=== PATIENT | male | born 1985 | race Caucasian/White ===

== ENCOUNTER 2016-09-29 14:18 | Emergency (ER) | payer MEDICAID ==
[~2016-09-29] VITALS: Ht 182.9 cm; Wt 74.0 kg
[~2016-09-29 14:18] MED LIST: CHOL20003 PO; FOLI-17 PO; LACO200T PO; LEVE500T8 PO; LORA-446 PO; OLAN20TA7 PO; VITA1TAB61 PO; ZONI100C2 PO
[2016-09-29] MEDS ORDERED: LIDOCAINE 1%, 20ML INFIL ONE (14:30)
[2016-09-29 15:02] LABS: HEMOGLOBIN 14.1 g/dL (13.7-18.0)
[2016-09-29 15:11] LABS: BLOOD UREA NITROGEN 8 mg/dL (7-18)
[2016-09-29] MEDS ORDERED: LIDOCAINE 1%, 20ML ONE (15:26)
[2016-09-29 17:45] VITALS: BP 100/71
== END 2016-09-29 17:47 | disposition home or self-care (01) ==
LOC: ED 16:59
DX: R56.9 Unspecified convulsions (principal); G40.909 Epilepsy, unspecified, not intractable, without status epilepticus; F20.9 Schizophrenia, unspecified
CPT/HCPCS: 36415; 70450; 80048; 82040; 85025

== ENCOUNTER 2018-05-26 08:05 | Emergency (ER) | payer MEDICAID ==
[~2018-05-26] VITALS: Ht 182.9 cm; Wt 102.3 kg
[~2018-05-26 08:05] MED LIST changes: +CHOL2000 PO; -CHOL20003 PO
[2018-05-26 08:16] VITALS: BP 102/67
[2018-05-26] MEDS ORDERED: PLEASE ENTER HEIGHT AND WEIGHT MC SCH (08:28)
[2018-05-26] MEDS ORDERED: LORazepam 2 MG/ML, 1ML IVPush ONE (08:30)
[2018-05-26] MEDS ORDERED: LORazepam 2 MG/ML, 1ML ONE (08:34)
[2018-05-26 08:39] LABS: BASOPHILS # (AUTO) 0.08 x10^3/uL (0-0.1); BASOPHILS % (AUTO) 1 % (0-1); EOSINOPHILS # (AUTO) 0.15 x10^3/uL (0-0.4); EOSINOPHILS % (AUTO) 2 % (1-7); LYMPHOCYTES % (AUTO) 28 % (22-44); MD NO; MEAN CORPUSCULAR HEMOGLOBIN 30.3 pg (27.5-34.5); MEAN CORPUSCULAR HGB CONC 33.5 g/dL (33.2-36.2); MEAN CORPUSCULAR VOLUME 90.3 fL (81-97); MEAN PLATELET VOLUME 9.1 fL (7.4-10.4); MONOCYTES # (AUTO) 0.57 x10^3/uL (0.2-0.8); MONOCYTES % (AUTO) 7 % (2-9); NEUTROPHILS % (AUTO) 63 % (42-75); PLATELET COUNT 239 x10^3/uL (130-400); RED BLOOD COUNT 4.61 x10^6/uL (4.38-5.82); RED CELL DISTRIBUTION WIDTH 13.7 % (9.4-14.8)
[2018-05-26 08:46] LABS: ALBUMIN 3.6 g/dL (3.4-5.0); ANION GAP 7 mmol/L (5-15); CALCIUM 8.5 mg/dL (8.5-10.1); CHLORIDE 114 mmol/L (98-107); CREATININE 0.83 mg/dL (0.7-1.3)
== END 2018-05-26 10:55 | disposition home or self-care (01) ==
LOC: ED 09:24
DX: G40.309 Generalized idiopathic epilepsy and epileptic syndromes, not intractable, without status epilepticus (principal)
CPT/HCPCS: 36415; 80048; 80177; 82040; 85025; 93005; 96374; 99284; J2060

== ENCOUNTER 2020-05-29 14:16 | Emergency (ER) | payer MEDICAID ==
[~2020-05-29] VITALS: Ht 182.9 cm; Wt 97.0 kg
[~2020-05-29 14:16] MED LIST changes: +OLAN20TA14 PO; -OLAN20TA7 PO; -ZONI100C2 PO; +ZONI100C29 PO
--- NOTE | 2020-05-29 14:22 | NUR ---
BREAK RN: CELESTE AT BEDSIDE FOR EVALUATION.
[2020-05-29] MEDS ORDERED: SODIUM CHLORIDE FLUSH 10ML SYR IVF ONE (14:30)
--- NOTE | 2020-05-29 14:33 | NUR ---
PATIENT MYRANDA SCHNEIDER FROM [facility] WITH CHIEF C/O SEIZURES X2. PER EMS PATIENT HAD A SEIZURE EARLY THIS MORNING AND ANTOTHER ONE AROUND 1300, AFTERWARDS PATIENT STARTED EXPERIENCING SPINAL PAIN. PER PATIENT ANOTHER PATIENT AT [facility] WITNESSED THE FIRST SEIZURE, NO ONE SAW THE SECOND SEIZURE. PATIENT STATES HE BIT HIS LIP. DENIES LOSS OF BLADDER OR BOWEL CONTROL. NADN, VSS, SEIZURE PRECAUTIONS IN PLACE, CALL LIGHT WITHIN REACH.
--- NOTE | 2020-05-29 14:33 | NUR ---
URINE SAMPLE COLLECTED AND SENT TO LAB.
[2020-05-29 14:59] LABS: AMPHETAMINE SCREEN, URINE Negative (Negative); BARBITURATE SCREEN, URINE Negative (Negative); BENZODIAZEPINE SCREEN, URINE Negative (Negative); CANNABINOID SCREEN, URINE Negative (Negative); COCAINE SCREEN, URINE Negative (Negative); METHADONE SCREEN, URINE Negative (Negative); OPIATE SCREEN, URINE Negative (Negative)
[2020-05-29] MEDS ORDERED: PLEASE ENTER HEIGHT AND WEIGHT MC SCH (15:00)
--- NOTE | 2020-05-29 15:18 | NUR ---
SEIZURE PADS NOTED TO BE IN PLACE. XRAY COMPLETED. PT IN NO DISTRESS AT THIS TIME
[2020-05-29] MEDS ORDERED: ACETAMINOPHEN 325 MG TABLET PO ONE (15:30)
[2020-05-29] MEDS ORDERED: ACETAMINOPHEN 325 MG TABLET ONE (15:33)
[2020-05-29 15:41] LABS: ALANINE AMINOTRANSFERASE 44 U/L (12-78); ANION GAP 4 mmol/L (5-15); CALCIUM 9.6 mg/dL (8.5-10.1); CHLORIDE 113 mmol/L (98-107); CREATININE 0.89 mg/dL (0.7-1.3)
[2020-05-29 15:43] LABS: ALKALINE PHOSPHATASE 159 U/L (45-117); BILIRUBIN,TOTAL 0.2 mg/dL (0.2-1.0); TOTAL PROTEIN 7.7 g/dL (6.4-8.2)
[2020-05-29 15:48] LABS: BASOPHILS % (AUTO) 1 % (0-1); EOSINOPHILS % (AUTO) 2 % (1-7); LYMPHOCYTES % (AUTO) 34 % (22-44); MEAN CORPUSCULAR HGB CONC 34.3 g/dL (33.2-36.2); MEAN PLATELET VOLUME 9.8 fL (7.4-10.4); MONOCYTES % (AUTO) 6 % (2-9); NEUTROPHILS % (AUTO) 57 % (42-75); PLATELET COUNT 268 x10^3/uL (130-400); RED BLOOD COUNT 4.56 x10^6/uL (4.38-5.82); RED CELL DISTRIBUTION WIDTH 12.7 % (9.4-14.8)
[2020-05-29 15:50] LABS: MD NO
[2020-05-29 18:35] VITALS: BP 118/78
== END 2020-05-29 18:36 | disposition home or self-care (01) ==
LOC: ED 15:42
DX: S29.012A Strain of muscle and tendon of back wall of thorax, initial encounter (principal); G40.309 Generalized idiopathic epilepsy and epileptic syndromes, not intractable, without status epilepticus; F17.290 Nicotine dependence, other tobacco product, uncomplicated; R94.31 Abnormal electrocardiogram [ECG] [EKG]; X58.XXXA Exposure to other specified factors, initial encounter; Y93.89 Activity, other specified; Y92.89 Other specified places as the place of occurrence of the external cause; Y99.8 Other external cause status
CPT/HCPCS: 36415; 72072; 80053; 80177; 80307; 80320; 85025; 93005; 99285; G0480

== ENCOUNTER 2020-06-14 03:50 | Emergency (ER) | payer MEDICAID ==
[~2020-06-14] VITALS: Ht 182.9 cm; Wt 96.0 kg
[2020-06-14] MEDS ORDERED: HYDROcodone/APAP 5/325 TABLET PO ONE (04:00)
[2020-06-14] MEDS ORDERED: SODIUM CHLORIDE FLUSH 10ML SYR IVF ONE (04:00)
[2020-06-14] MEDS ORDERED: LEVETIRACETAM 500 MG TABLET PO SCH (04:00)
[2020-06-14] MEDS ORDERED: LORazepam 2 MG/ML, 1ML IVPush ONE (04:00)
[2020-06-14] MEDS ORDERED: ONDANSETRON ODT 4 MG PO ONE (04:00)
--- NOTE | 2020-06-14 04:00 | NUR ---
"I HAD ABOUT THREE SEIZURES" PT STATES BACK PAIN 02/16 "I HIT THE BED FRAME FALLING OUT OF BED" RECENTLY SEEN AT [facility] 8 DAYS AGO FOR SAME. HX SEIZURES. STATES COMPLIANT WITH KEPPRA. PT ATTACHED TO ALL MONITORS. PT A+OX4
[2020-06-14] MEDS ORDERED: LEVETIRACETAM 500 MG TABLET ONE (04:24)
[2020-06-14] MEDS ORDERED: ONDANSETRON ODT 4 MG ONE (04:24)
[2020-06-14] MEDS ORDERED: HYDROcodone/APAP 5/325 TABLET ONE (04:25)
[2020-06-14] MEDS ORDERED: LORazepam 1MG TABLET ONE (04:25)
[2020-06-14] MEDS ORDERED: LORazepam 1MG TABLET PO ONE (04:30)
--- NOTE | 2020-06-14 04:36 | NUR ---
PT MEDICATED FOR PAIN PER EMAR. PT HAS ASKED ME SEVERAL TIMES FOR MORPHINE. I EDUCATED PT THAT HE WILL NOT BE RECIEVEING MORPHINE DURING THIS VISIT.
[2020-06-14 05:01] LABS: BASOPHILS % (AUTO) 1 % (0-1); EOSINOPHILS % (AUTO) 1 % (1-7); LYMPHOCYTES % (AUTO) 25 % (22-44); MEAN CORPUSCULAR HEMOGLOBIN 30.8 pg (27.5-34.5); MEAN CORPUSCULAR HGB CONC 34.2 g/dL (33.2-36.2); MEAN PLATELET VOLUME 9.1 fL (7.4-10.4); MONOCYTES % (AUTO) 7 % (2-9); NEUTROPHILS % (AUTO) 67 % (42-75); PLATELET COUNT 231 x10^3/uL (130-400); RED BLOOD COUNT 4.72 x10^6/uL (4.38-5.82)
[2020-06-14 05:02] LABS: MD NO
[2020-06-14 05:13] LABS: ANION GAP 4 mmol/L (5-15); CALCIUM 9.1 mg/dL (8.5-10.1); CHLORIDE 113 mmol/L (98-107)
[2020-06-14 05:16] LABS: ALANINE AMINOTRANSFERASE 30 U/L (12-78); ALKALINE PHOSPHATASE 164 U/L (45-117); BILIRUBIN,TOTAL 0.3 mg/dL (0.2-1.0); CREATININE 0.94 mg/dL (0.7-1.3); TOTAL PROTEIN 7.5 g/dL (6.4-8.2)
[2020-06-14 05:33] VITALS: BP 116/74
--- NOTE | 2020-06-14 05:33 | NUR ---
PT REQUESTING MORE PAIN MEDICATIONS. INFORMED HE WILL NOT BE RECIEVING ANY MORE NARCOTIC PAIN MEDICATIONS AND HE CAN TAKE TYLENOL AND IBUPROFEN AT HOME FOR PAIN.
== END 2020-06-14 05:43 | disposition home or self-care (01) ==
LOC: ED 05:32
DX: S39.012A Strain of muscle, fascia and tendon of lower back, initial encounter (principal); R11.0 Nausea; G40.909 Epilepsy, unspecified, not intractable, without status epilepticus; X58.XXXA Exposure to other specified factors, initial encounter; Y93.89 Activity, other specified; Y92.89 Other specified places as the place of occurrence of the external cause; Y99.8 Other external cause status
CPT/HCPCS: 36415; 70450; 80053; 85025; 99284; Q0162

== ENCOUNTER 2020-06-16 18:12 | Emergency (ER) | payer MEDICAID ==
[~2020-06-16] VITALS: Ht 182.9 cm; Wt 97.0 kg
[2020-06-16] MEDS ORDERED: LORazepam 2 MG/ML, 1ML IM PRN ×2 (18:30→19:00)
[2020-06-16] MEDS ORDERED: LORazepam 2 MG/ML, 1ML ONE (18:31)
--- NOTE | 2020-06-16 18:39 | NUR ---
PT TO XRAY
--- NOTE | 2020-06-16 19:10 | NUR ---
LAB AT BEDSIDE.
[2020-06-16] MEDS ORDERED: IBUPROFEN 600 MG TABLET ONE (19:20)
[2020-06-16 19:25] LABS: BASOPHILS % (AUTO) 1 % (0-1); EOSINOPHILS % (AUTO) 2 % (1-7); LYMPHOCYTES % (AUTO) 27 % (22-44); MEAN CORPUSCULAR HGB CONC 34.2 g/dL (33.2-36.2); MEAN PLATELET VOLUME 9.6 fL (7.4-10.4); MONOCYTES % (AUTO) 7 % (2-9); NEUTROPHILS % (AUTO) 64 % (42-75); PLATELET COUNT 256 x10^3/uL (130-400); RED BLOOD COUNT 4.59 x10^6/uL (4.38-5.82); RED CELL DISTRIBUTION WIDTH 13.2 % (9.4-14.8)
[2020-06-16 19:28] LABS: MD NO
[2020-06-16] MEDS ORDERED: IBUPROFEN 600 MG TABLET PO ONE (19:30)
[2020-06-16 19:33] LABS: ALBUMIN 3.9 g/dL (3.4-5.0); ANION GAP 4 mmol/L (5-15); CALCIUM 9.2 mg/dL (8.5-10.1); CHLORIDE 109 mmol/L (98-107); CREATININE 0.87 mg/dL (0.7-1.3)
--- NOTE | 2020-06-16 19:36 | NUR ---
RADIOLOGY CHECKING ON XRAY RESULTS.
--- NOTE | 2020-06-16 19:47 | NUR ---
ALL RESULTS ARE BACK AT THIS TIME. CHART UP FOR RECHECK.
--- NOTE | 2020-06-16 20:02 | NUR ---
MD AT BEDSIDE TO UPDATE PT ON POC.
[2020-06-16] MEDS ORDERED: LEVETIRACETAM 500 MG TABLET ONE (20:13)
[2020-06-16 20:21] VITALS: BP 124/76
[2020-06-16] MEDS ORDERED: LEVETIRACETAM 500 MG TABLET PO ONE (20:30)
--- NOTE | 2020-06-16 20:46 | NUR ---
[facility] CALLED TO INFORM THEM OF DC.
== END 2020-06-16 20:47 | disposition home or self-care (01) ==
LOC: ED 19:16
DX: R56.9 Unspecified convulsions (principal); M54.5 Low back pain; M25.562 Pain in left knee; R55 Syncope and collapse
CPT/HCPCS: 36415; 72110; 73564; 80048; 82040; 85025; 96372; 99284; J2060

== ENCOUNTER 2020-06-26 04:24 | Emergency (ER) | payer MEDICAID ==
[~2020-06-26] VITALS: Ht 182.9 cm; Wt 96.0 kg
[2020-06-26] MEDS ORDERED: KETOROLAC 30 MG/1 ML IM ONE (05:00)
[2020-06-26] MEDS ORDERED: METHOCARBAMOL 750 MG TABLET PO ONE (05:00)
[2020-06-26] MEDS ORDERED: METHOCARBAMOL 750 MG TABLET ONE (05:47)
[2020-06-26] MEDS ORDERED: KETOROLAC 30 MG/1 ML ONE (05:47)
--- NOTE | 2020-06-26 07:14 | NUR ---
REPORT FROM AMADOR CRAMER WITH ASSESSMENT PATIENT RESTING COMFORTABLY IN C-COLLAR CT CALLED TO EXPEDITE CT CERVICAL SPINE READ
[2020-06-26] MEDS ORDERED: LORazepam 2 MG/ML, 1ML IM ONE (07:30)
[2020-06-26] MEDS ORDERED: LORazepam 2 MG/ML, 1ML ONE (07:34)
--- NOTE | 2020-06-26 07:37 | NUR ---
medicated per emar for mri (assist in holding still for exam)
--- NOTE | 2020-06-26 09:32 | NUR ---
LAB AT BEDSIDE C-COLLAR REMOVED BY PROVIDER POC UPDATED WITH PROVIDER: "REPEAT CT WITH SOFT TISSUE ABNORMALITY-TO CHECK FOR INFECTION SXS WITH BLOOD WORK. AND GO FROM THERE."
[2020-06-26 10:14] LABS: HCT (SEDRATE) 41.6 % (39.2-51.8)
--- NOTE | 2020-06-26 11:30 | NUR ---
LAB CALLED TO CLARIFY PENDING LAB RESULTS. LAB HAD TO RE-DRAW SAMPLE 5 MINUTES AGO PROVIDER MADE AWARE
[2020-06-26 11:32] LABS: BASOPHILS % (AUTO) 1 % (0-1); EOSINOPHILS % (AUTO) 1 % (1-7); LYMPHOCYTES % (AUTO) 19 % (22-44); MEAN CORPUSCULAR HEMOGLOBIN 30.3 pg (27.5-34.5); MEAN PLATELET VOLUME 9.5 fL (7.4-10.4); MONOCYTES % (AUTO) 6 % (2-9); NEUTROPHILS % (AUTO) 73 % (42-75); PLATELET COUNT 242 x10^3/uL (130-400); RED BLOOD COUNT 4.78 x10^6/uL (4.38-5.82); RED CELL DISTRIBUTION WIDTH 12.8 % (9.4-14.8)
[2020-06-26 11:36] LABS: MD NO
[2020-06-26 12:46] VITALS: BP 103/66
--- NOTE | 2020-06-26 12:49 | NUR ---
TASK RN, DR CLEMENT AT BEDSIDE, TEST RESULTS REVIEWED AND QUESTIONS ANSWERED. PLAN FOR D/C HOME WITH TAXI VOUCHER. PT PAIN 12/16 AND VERBALIZES "I CAN HANDLE IT"
--- NOTE | 2020-06-26 13:05 | NUR ---
TASK RN Patient/Caregiver given discharge instructions and they have confirmed that they understand the instructions. Patient ambulatory with steady gait.
== END 2020-06-26 13:06 | disposition home or self-care (01) ==
LOC: ED 06:49
DX: S16.1XXA Strain of muscle, fascia and tendon at neck level, initial encounter (principal); G40.309 Generalized idiopathic epilepsy and epileptic syndromes, not intractable, without status epilepticus; G89.11 Acute pain due to trauma; W19.XXXA Unspecified fall, initial encounter; Y93.89 Activity, other specified; Y92.89 Other specified places as the place of occurrence of the external cause; Y99.8 Other external cause status
CPT/HCPCS: 36415; 72125; 85025; 85651; 96372; 99285; J1885; J2060; 99284

== ENCOUNTER 2020-07-15 06:54 | Emergency (ER) | payer MEDICAID ==
[~2020-07-15] VITALS: Ht 182.9 cm; Wt 98.0 kg
[~2020-07-15 06:54] MED LIST changes: -FOLI-17 PO; +FOLI1TAB32 PO
[2020-07-15] MEDS ORDERED: OLAN10TA9 PO (07:05)
[2020-07-15] MEDS ORDERED: OLAN10VI2 PO (07:05)
--- NOTE | 2020-07-15 07:09 | NUR ---
THIS IS A 34 YO M BIB EMS FROM [facility] W/ C/O SEIZURE THIS MORNING. PER EMS LASTED 5 MINUTES, PT HIT HEAD ON BATHTUB. PER EMS 15ML BLOOD ON FLOOR UPON THEIR ARRIVAL. PT REPORTS HE HAS MULTIPLE SEIZURES A NIGHT. PT TAKING MEDS APPROPRIATELY. PT RESTING ON GURNEY W/ CALL LIGHT IN REACH AND SIDE RAILS UPX2. SEIZURE PRECAUTIONS IN PLACE. EDYTA RODRÍGUEZ.
[2020-07-15] MEDS ORDERED: ACETAMINOPHEN 325 MG TABLET ONE (07:15)
[2020-07-15] MEDS ORDERED: DIPH,PERTUSS(ACELL),TET VAC/PF 0.5 ML IM-VACC ONE ×2 (07:16→07:30)
--- NOTE | 2020-07-15 07:18 | NUR ---
PT MEDICATED PER EMAR. LAB IN ROOM AND EMT AT BEDSIDE TO CLEAN WOUND.
[2020-07-15] MEDS ORDERED: LIDOCAINE-MPF 1%, 5ML ONE (07:23)
[2020-07-15] MEDS ORDERED: LIDOCAINE-MPF 1%, 5ML INFIL ONE (07:30)
[2020-07-15] MEDS ORDERED: ACETAMINOPHEN 325 MG TABLET PO ONE (07:30)
--- NOTE | 2020-07-15 07:37 | NUR ---
PT RESTING ON EDYTA [address] WORKER AT BEDSIDE.
--- NOTE | 2020-07-15 07:48 | NUR ---
PT RETURNED FROM CT W/O INCIDENT.
[2020-07-15 08:21] VITALS: BP 96/66
--- NOTE | 2020-07-15 08:49 | NUR ---
Patient given discharge instructions and they have confirmed that they understand the instructions and need to f/u w/ neurologist. Patient ambulatory with steady gait. Pt provided w/ taxi voucher per request back to [facility].
== END 2020-07-15 08:51 | disposition home or self-care (01) ==
LOC: ED 08:05
DX: S01.01XA Laceration without foreign body of scalp, initial encounter (principal); G40.409 Other generalized epilepsy and epileptic syndromes, not intractable, without status epilepticus; I51.7 Cardiomegaly; W01.198A Fall on same level from slipping, tripping and stumbling with subsequent striking against other object, initial encounter; Y93.89 Activity, other specified; Y92.89 Other specified places as the place of occurrence of the external cause; Y99.8 Other external cause status
CPT/HCPCS: 12002; 36415; 70450; 80177; 90471; 90715; 93005; 99285

== ENCOUNTER 2020-08-14 01:33 | Emergency (ER) | payer MEDICAID ==
[~2020-08-14] VITALS: Ht 182.9 cm; Wt 96.0 kg
[~2020-08-14 01:33] MED LIST changes: +OLAN10TA9 PO; +OLAN10VI2 PO
[2020-08-14 01:46] VITALS: BP 116/76
--- NOTE | 2020-08-14 01:47 | NUR ---
Patient JEREMIE from [facility] c/o VIGIL post GLF after a seizure. Patient states he went to the bathroom and fell then had a seizure. Per EMS, staff stated the "seizure and fall were both unwitnessed and they did not hear patient fall from outside the door." Patient states he has had four seizures today and usually has one or more every other day. Patient sees a neurologist and takes meds for seizures. Denies alcohol/drug use. Also has a hx of schizophrenia. Patient is in NAD. Respirations even and unlabored. Patient is not postictal. AAOx4. No incontinence noted. No traumatic injuries noted.
[2020-08-14] MEDS ORDERED: NAPR-685 PO (01:54)
[2020-08-14] MEDS ORDERED: ESLI600T PO (01:54)
--- NOTE | 2020-08-14 02:01 | NUR ---
EMS took a BGL=96
[2020-08-14 02:29] LABS: ALBUMIN 3.9 g/dL (3.4-5.0); ANION GAP 11 mmol/L (5-15); CALCIUM 8.6 mg/dL (8.5-10.1); CHLORIDE 97 mmol/L (98-107); CREATININE 0.76 mg/dL (0.7-1.3)
[2020-08-14] MEDS ORDERED: ACETAMINOPHEN 325 MG TABLET ONE (02:58)
[2020-08-14] MEDS ORDERED: ACETAMINOPHEN 325 MG TABLET PO ONE (03:00)
[2020-08-14] MEDS ORDERED: SODIUM CHLORIDE 0.9% 1,000ML IVBOLUS ONE (03:30)
--- NOTE | 2020-08-14 04:55 | NUR ---
Discharge instructions given. All questions and concerns addressed. Patient ambulatory with a steady gait. Belongings with patient.
== END 2020-08-14 04:56 | disposition home or self-care (01) ==
LOC: ED 03:01
DX: G40.409 Other generalized epilepsy and epileptic syndromes, not intractable, without status epilepticus (principal); E87.1 Hypo-osmolality and hyponatremia; R55 Syncope and collapse
CPT/HCPCS: 36415; 70450; 80048; 82040; 93005; 99285; J7030

== ENCOUNTER 2020-08-17 16:06 | Emergency (ER) | payer MEDICAID ==
[~2020-08-17] VITALS: Ht 182.9 cm; Wt 98.0 kg
[~2020-08-17 16:06] MED LIST changes: +ESLI600T PO; +NAPR-685 PO
[2020-08-17] MEDS ORDERED: LEVE100020 PO ×2 (16:30)
--- NOTE | 2020-08-17 16:40 | NUR ---
REPORT FROM TARA CRAMER. AWAITING ERP TO SEE.
[2020-08-17 17:51] LABS: BASOPHILS % (AUTO) 1 % (0-1); EOSINOPHILS % (AUTO) 1 % (1-7); LYMPHOCYTES % (AUTO) 19 % (22-44); MEAN CORPUSCULAR HEMOGLOBIN 29.9 pg (27.5-34.5); MEAN PLATELET VOLUME 8.9 fL (7.4-10.4); MONOCYTES % (AUTO) 4 % (2-9); NEUTROPHILS % (AUTO) 75 % (42-75); PLATELET COUNT 266 x10^3/uL (130-400); RED BLOOD COUNT 4.24 x10^6/uL (4.38-5.82); RED CELL DISTRIBUTION WIDTH 13.6 % (9.4-14.8)
--- NOTE | 2020-08-17 17:53 | NUR ---
IV PLACED BY WELDING EQUIPMENT SALES REPRESENTATIVE. NS BOLUS INFUSING. PT REQUESTING PAIN MEDICATION FOR 8/10 VIGIL AND L LEG PAIN. ERP NOTIFIED OF REQUEST. PT TO CT.
[2020-08-17] MEDS ORDERED: SODIUM CHLORIDE 0.9% 1,000ML IVBOLUS ONE (18:00)
[2020-08-17] MEDS ORDERED: SODIUM CHLORIDE FLUSH 10ML SYR IVF ONE (18:00)
[2020-08-17] MEDS ORDERED: SODIUM CHLORIDE 0.9% 1,000 ML IV ONE (18:00)
[2020-08-17 18:11] LABS: MD NO
[2020-08-17 18:17] LABS: ALANINE AMINOTRANSFERASE 36 U/L (12-78); ALBUMIN 3.8 g/dL (3.4-5.0); ANION GAP 5 mmol/L (5-15); CALCIUM 8.8 mg/dL (8.5-10.1); CHLORIDE 111 mmol/L (98-107); CREATININE 0.84 mg/dL (0.7-1.3)
[2020-08-17 18:19] LABS: ALKALINE PHOSPHATASE 145 U/L (45-117); BILIRUBIN,TOTAL 0.4 mg/dL (0.2-1.0); TOTAL PROTEIN 7.8 g/dL (6.4-8.2)
--- NOTE | 2020-08-17 19:00 | NUR ---
REPORT TO GENTRY CRAMER, TRANSFER OF CARE AT THIS TIME.
[2020-08-17] MEDS ORDERED: ACETAMINOPHEN 325 MG TABLET ONE (19:18)
[2020-08-17 19:21] VITALS: BP 119/68
[2020-08-17] MEDS ORDERED: ACETAMINOPHEN 325 MG TABLET PO ONE (19:30)
== END 2020-08-17 19:52 | disposition home or self-care (01) ==
LOC: ED 19:46
DX: R55 Syncope and collapse (principal); G40.909 Epilepsy, unspecified, not intractable, without status epilepticus; R94.31 Abnormal electrocardiogram [ECG] [EKG]
CPT/HCPCS: 36415; 70450; 80053; 85025; 93005; 96360; 99285; J7030

== ENCOUNTER 2020-08-30 04:05 | Emergency (ER) | payer MEDICAID ==
[~2020-08-30] VITALS: Ht 182.9 cm; Wt 100.8 kg
[~2020-08-30 04:05] MED LIST changes: +LEVE100020 PO
[2020-08-30] MEDS ORDERED: ACETAMINOPHEN 500 MG TABLET ONE (04:51)
[2020-08-30] MEDS ORDERED: ACETAMINOPHEN 500 MG TABLET PO ONE (05:00)
[2020-08-30 05:27] LABS: BASOPHILS % (AUTO) 1 % (0-1); EOSINOPHILS % (AUTO) 1 % (1-7); LYMPHOCYTES % (AUTO) 31 % (22-44); MEAN CORPUSCULAR HEMOGLOBIN 30.1 pg (27.5-34.5); MEAN CORPUSCULAR HGB CONC 33.3 g/dL (33.2-36.2); MEAN PLATELET VOLUME 10.1 fL (7.4-10.4); MONOCYTES % (AUTO) 5 % (2-9); NEUTROPHILS % (AUTO) 61 % (42-75); PLATELET COUNT 208 x10^3/uL (130-400); RED BLOOD COUNT 4.26 x10^6/uL (4.38-5.82); RED CELL DISTRIBUTION WIDTH 14.7 % (9.4-14.8)
[2020-08-30 05:30] LABS: MD NO
[2020-08-30 05:41] LABS: ALANINE AMINOTRANSFERASE 33 U/L (12-78); ALBUMIN 3.6 g/dL (3.4-5.0); ANION GAP 8 mmol/L (5-15); CALCIUM 8.7 mg/dL (8.5-10.1); CHLORIDE 115 mmol/L (98-107); CREATININE 0.81 mg/dL (0.7-1.3)
[2020-08-30 05:44] LABS: ALKALINE PHOSPHATASE 152 U/L (45-117); TOTAL PROTEIN 7.4 g/dL (6.4-8.2)
[2020-08-30 05:46] LABS: BILIRUBIN,TOTAL < 0.1 mg/dL (0.2-1.0)
[2020-08-30] MEDS ORDERED: LEVETIRACETAM 500 MG TABLET ONE (05:57)
[2020-08-30] MEDS ORDERED: LEVETIRACETAM 500 MG TABLET PO ONE (06:00)
[2020-08-30 06:02] VITALS: BP 107/66
--- NOTE | 2020-08-30 06:23 | NUR ---
Patient given discharge instructions and they have confirmed that they understand the instructions. Patient ambulatory with steady gait. denies additional needs, questions answered appropriately. no personal belongings left in room after dc. pt unable to use mtm due to not having information to call. provided taxi voucher
== END 2020-08-30 06:24 | disposition home or self-care (01) ==
LOC: ED 05:10
DX: R56.9 Unspecified convulsions (principal); R55 Syncope and collapse; R51.9 Headache, unspecified; E87.1 Hypo-osmolality and hyponatremia
CPT/HCPCS: 36415; 80053; 85025; 93005; 99284

== ENCOUNTER 2020-09-21 01:49 | Emergency (ER) | payer MEDICAID ==
[~2020-09-21] VITALS: Ht 182.9 cm; Wt 99.4 kg
--- NOTE | 2020-09-21 02:00 | NUR ---
Patient BIBA from home c/o seizures. Patient reports having 4 seziures within 10 minutes. Last seizure approx 40 minute ago. Hx of same. Takes Keppra at home. Patient states he experienced a GLF after the 3rd seizure and hit his head. C/o pain on the right side of his head. Also c/o low back pain. Patient is in NAD. REspirations even and unlabored.
[2020-09-21 02:38] LABS: BASOPHILS % (AUTO) 1 % (0-1); EOSINOPHILS % (AUTO) 2 % (1-7); LYMPHOCYTES % (AUTO) 28 % (22-44); MEAN CORPUSCULAR HEMOGLOBIN 29.9 pg (27.5-34.5); MEAN CORPUSCULAR HGB CONC 33.5 g/dL (33.2-36.2); MONOCYTES % (AUTO) 7 % (2-9); NEUTROPHILS % (AUTO) 63 % (42-75); PLATELET COUNT 190 x10^3/uL (130-400); RED CELL DISTRIBUTION WIDTH 14.6 % (9.4-14.8)
[2020-09-21 02:39] LABS: MD NO
[2020-09-21 02:44] LABS: ALANINE AMINOTRANSFERASE 29 U/L (12-78); ALBUMIN 3.5 g/dL (3.4-5.0); ANION GAP 7 mmol/L (5-15); CALCIUM 8.6 mg/dL (8.5-10.1); CHLORIDE 115 mmol/L (98-107)
[2020-09-21 02:46] LABS: ALKALINE PHOSPHATASE 165 U/L (45-117); BILIRUBIN,TOTAL 0.1 mg/dL (0.2-1.0); TOTAL PROTEIN 7.1 g/dL (6.4-8.2)
--- NOTE | 2020-09-21 02:56 | NUR ---
Covering primary nurse for break, pt in NAD, seizure pads on. VSS will continue to monitor.
[2020-09-21 02:58] VITALS: BP 110/68
[2020-09-21] MEDS ORDERED: IBUPROFEN 800 MG TABLET ONE (03:26)
[2020-09-21] MEDS ORDERED: IBUPROFEN 800 MG TABLET PO ONE (03:30)
== END 2020-09-21 03:40 | disposition home or self-care (01) ==
LOC: ED 02:11
DX: R56.9 Unspecified convulsions (principal); Z87.891 Personal history of nicotine dependence
CPT/HCPCS: 36415; 80053; 85025; 99283

== ENCOUNTER 2020-10-28 16:19 | Emergency (ER) | payer MEDICAID ==
[~2020-10-28] VITALS: Ht 182.9 cm; Wt 100.0 kg
[2020-10-28 16:30] VITALS: BP 122/71
--- NOTE | 2020-10-28 16:45 | NUR ---
PT BIB EMS FROM [facility], TRIPPED AND FELL TO LEFT SIDE IN BATHROOM . PAIN WHEN MOVING OR DEEP BREATH. NO LOC OR HEAD INJURY
[2020-10-28] MEDS ORDERED: KETOROLAC 30 MG/1 ML ONE (17:18)
--- NOTE | 2020-10-28 17:44 | NUR ---
MEDICATED FOR PAIN W TORADOL. PT BACK FROM XR.
[2020-10-28] MEDS ORDERED: KETOROLAC 30 MG/1 ML IM ONE (18:00)
--- NOTE | 2020-10-28 18:03 | NUR ---
PT VOIDED. NO BLOOD IN URINE
[2020-10-28] MEDS ORDERED: HYDROcodone/APAP 5/325 TABLET ONE (18:25)
[2020-10-28] MEDS ORDERED: HYDROcodone/APAP 5/325 TABLET PO ONE (18:30)
--- NOTE | 2020-10-28 18:38 | NUR ---
Patient given discharge instructions and they have confirmed that they understand the instructions. Given spirometer w education. medicated for pain, taxi voucher for dc. Patient ambulatory with steady gait.
== END 2020-10-28 18:40 ==
LOC: ED 16:37
DX: S22.42XA Multiple fractures of ribs, left side, initial encounter for closed fracture (principal); W01.0XXA Fall on same level from slipping, tripping and stumbling without subsequent striking against object, initial encounter; Z87.891 Personal history of nicotine dependence; Y93.89 Activity, other specified; Y92.89 Other specified places as the place of occurrence of the external cause; Y99.8 Other external cause status
CPT/HCPCS: 71101; 96372; 99283; J1885

== ENCOUNTER 2020-11-05 02:54 | Emergency (ER) | payer MEDICAID ==
[~2020-11-05] VITALS: Ht 185.4 cm; Wt 97.0 kg
--- NOTE | 2020-11-05 03:07 | NUR ---
PT BIB EMS FROM HOME WITH DIVISION SERGEANT 3 SEIZURES TODAY. PT REPORTS FALLING DURING SZ AND HITTING BACK AND HEAD TODAY. UNKNOWN LOC. PT CHANGED INTO GOWN, PLACED ON SPO2/BP/ECG MONITORING. SEIZURE PRECAUTIONS IN PLACE AT THIS TIME, WCTM. Patient is resting comfortably in bed. Bed in lowest, rails engaged, call light on lap. Vital Signs within normal limits. WCTM. PROVIDED WARM BLANKETS FOR COMFORT
[2020-11-05] MEDS ORDERED: LORazepam 1MG TABLET PO ONE (03:30)
[2020-11-05 03:32] LABS: BASOPHILS % (AUTO) 1 % (0-1); EOSINOPHILS % (AUTO) 2 % (1-7); LYMPHOCYTES % (AUTO) 25 % (22-44); MEAN CORPUSCULAR HEMOGLOBIN 30.1 pg (27.5-34.5); MEAN CORPUSCULAR HGB CONC 34.1 g/dL (33.2-36.2); MONOCYTES % (AUTO) 6 % (2-9); NEUTROPHILS % (AUTO) 67 % (42-75); PLATELET COUNT 276 x10^3/uL (130-400); RED BLOOD COUNT 4.45 x10^6/uL (4.38-5.82); RED CELL DISTRIBUTION WIDTH 13.6 % (9.4-14.8)
[2020-11-05 03:40] LABS: MD NO
[2020-11-05 03:44] LABS: ALANINE AMINOTRANSFERASE 25 U/L (12-78); ALBUMIN 3.7 g/dL (3.4-5.0); ANION GAP 8 mmol/L (5-15); CALCIUM 8.6 mg/dL (8.5-10.1); CHLORIDE 101 mmol/L (98-107); CREATININE 0.82 mg/dL (0.7-1.3)
[2020-11-05 03:47] LABS: ALKALINE PHOSPHATASE 144 U/L (45-117); BILIRUBIN,TOTAL 0.2 mg/dL (0.2-1.0); TOTAL PROTEIN 7.5 g/dL (6.4-8.2)
--- NOTE | 2020-11-05 04:11 | NUR ---
Patient is resting comfortably in bed. Bed in lowest, rails engaged, call light on lap. Vital Signs within normal limits. PT OFFERED MEDICATION ORDERED, PT REFUSED STATING THAT "A SHOT OF MORPHINE DEBBIE WORK FASTER, CAN I HAVE THAT INSTEAD?" ERP AWARE, NO NEW ORDERS AT THIS TIME. WCTM.
[2020-11-05 04:25] VITALS: BP 131/69
[2020-11-05] MEDS ORDERED: LORazepam 1MG TABLET ONE (04:31)
--- NOTE | 2020-11-05 05:11 | NUR ---
Patient/Caregiver given discharge instructions and they have confirmed that they understand the instructions. Patient ambulatory with steady gait. NAD, all questions answered appropriately, denies additional needs at this time. No personal belongings left in room after discharge. PROVIDED TAXI VOUCHER AND NEW SHIRT.
== END 2020-11-05 05:37 | disposition home or self-care (01) ==
LOC: ED 05:16
DX: S22.32XA Fracture of one rib, left side, initial encounter for closed fracture (principal); S00.93XA Contusion of unspecified part of head, initial encounter; G40.909 Epilepsy, unspecified, not intractable, without status epilepticus; W06.XXXA Fall from bed, initial encounter; Y93.89 Activity, other specified; Y92.89 Other specified places as the place of occurrence of the external cause; Y99.8 Other external cause status
CPT/HCPCS: 36415; 80053; 85025; 99284

== ENCOUNTER 2020-11-21 09:14 | Emergency (ER) | payer MEDICAID ==
[~2020-11-21] VITALS: Ht 182.9 cm; Wt 97.0 kg
--- NOTE | 2020-11-21 09:37 | NUR ---
Hx of epilepsy, unwitnessed sz this AM. FSBG 108. A&Ox4. Keppra 1000mg qAm, 1500qPM baseline med. Xcopri 12.5mgat bedtime added 9 days ago. 9 days ago pt had sz in which he fell and reports L broken ribs. Pt's cheif complaint is L side rib pain, he's concerned he reinjured his ribs. All monitoring and sz pads in place.
[2020-11-21 09:58] LABS: BASOPHILS % (AUTO) 1 % (0-1); EOSINOPHILS % (AUTO) 2 % (1-7); LYMPHOCYTES % (AUTO) 30 % (22-44); MEAN CORPUSCULAR HGB CONC 33.7 g/dL (33.2-36.2); MEAN PLATELET VOLUME 8.7 fL (7.4-10.4); MONOCYTES % (AUTO) 6 % (2-9); NEUTROPHILS % (AUTO) 61 % (42-75); PLATELET COUNT 252 x10^3/uL (130-400); RED BLOOD COUNT 4.31 x10^6/uL (4.38-5.82); RED CELL DISTRIBUTION WIDTH 13.6 % (9.4-14.8)
[2020-11-21 10:05] LABS: ALANINE AMINOTRANSFERASE 22 U/L (12-78); ALBUMIN 3.5 g/dL (3.4-5.0); ANION GAP 9 mmol/L (5-15); CALCIUM 9.2 mg/dL (8.5-10.1); CHLORIDE 110 mmol/L (98-107); CREATININE 0.78 mg/dL (0.7-1.3)
[2020-11-21 10:08] LABS: ALKALINE PHOSPHATASE 162 U/L (45-117); BILIRUBIN,TOTAL 0.2 mg/dL (0.2-1.0); TOTAL PROTEIN 7.3 g/dL (6.4-8.2)
[2020-11-21 11:48] VITALS: BP 108/72
== END 2020-11-21 11:54 | disposition home or self-care (01) ==
LOC: ED 09:20
DX: G40.309 Generalized idiopathic epilepsy and epileptic syndromes, not intractable, without status epilepticus (principal)
CPT/HCPCS: 36415; 80053; 85025; 99283

== ENCOUNTER 2020-12-03 01:57 | Emergency (ER) | payer MEDICAID ==
--- NOTE | 2020-12-03 02:09 | NUR ---
PT ON CR MONITOR, BIB [facility] FOR SEIZURES. PT STATES HE THINKS HE HAD A 30 SECOND SEIZURE, AND HAD AN AURA BEFORE HAND. PT SAYS AFTER HIS SEIZURE HE MADE IT TO HIS BED AND CALLED EMS. PT CURRENTLY A&OX4, NO ACUTE DISTRESS. ON FULL CR MONITOR, AND EKG DONE ON ARRIVAL.
--- NOTE | 2020-12-03 02:10 | NUR ---
AIRWAY INTACT, AND GOOD AERATION AND OXYGENATION.
--- NOTE | 2020-12-03 02:15 | NUR ---
PT IS NOW ASKING FOR PAIN MEDICATION FOR HIS RIBS (OLD INJURY) AND HIS BACK, PT SAYS HE HAS CHRONIC BACK PAIN.
[2020-12-03 02:40] LABS: ALBUMIN 3.4 g/dL (3.4-5.0); ANION GAP 7 mmol/L (5-15); CALCIUM 8.5 mg/dL (8.5-10.1); CHLORIDE 109 mmol/L (98-107); CREATININE 0.69 mg/dL (0.7-1.3)
[2020-12-03 02:41] LABS: BASOPHILS % (AUTO) 1 % (0-1); EOSINOPHILS % (AUTO) 3 % (1-7); LYMPHOCYTES % (AUTO) 34 % (22-44); MEAN CORPUSCULAR HEMOGLOBIN 30.6 pg (27.5-34.5); MEAN CORPUSCULAR HGB CONC 33.7 g/dL (33.2-36.2); MEAN PLATELET VOLUME 9.8 fL (7.4-10.4); MONOCYTES % (AUTO) 6 % (2-9); NEUTROPHILS % (AUTO) 57 % (42-75); PLATELET COUNT 221 x10^3/uL (130-400); RED BLOOD COUNT 4.42 x10^6/uL (4.38-5.82); RED CELL DISTRIBUTION WIDTH 13.1 % (9.4-14.8)
--- NOTE | 2020-12-03 03:19 | NUR ---
pt laying in bed, a/ox4, pt requestion pain meds although this RN notes no signs of distress, pt not grasping at any specific location, pts respirations unlabored, pt not tachycardic, pt very calm and specifically requested if he can, "get an IV and some pain meds", this RN stated he would talk to MD about it
[2020-12-03] MEDS ORDERED: IBUPROFEN 800 MG TABLET ONE (03:22)
[2020-12-03] MEDS ORDERED: IBUPROFEN 800 MG TABLET PO ONE (03:30)
[2020-12-03 03:32] VITALS: BP 119/75
== END 2020-12-03 03:34 | disposition home or self-care (01) ==
LOC: ED 03:00
DX: G40.409 Other generalized epilepsy and epileptic syndromes, not intractable, without status epilepticus (principal)
CPT/HCPCS: 36415; 80048; 82040; 85025; 93005; 99284

== ENCOUNTER 2020-12-10 04:30 | Emergency (ER) | payer MEDICAID ==
[~2020-12-10] VITALS: Ht 182.9 cm; Wt 91.0 kg
--- NOTE | 2020-12-10 04:48 | NUR ---
RECEIVED UPDATE FROMT AMELIE RN. ASSUMED CARE OF PT. HE STATES HE HIT HIS HEAD ON COUNTER AND "KNOCKED MYSELF OUT" W/ LOC. THIS DIFFERS FROM [facility]. HE REPORTS A VIGIL, BUT IS A&OX4, PUPILS PERRLA. PT PLACED ON MONITOR, VSS, NADN. CALL LIGHT W/IN REACH.
[2020-12-10 06:10] VITALS: BP 135/71
== END 2020-12-10 06:12 | disposition home or self-care (01) ==
LOC: ED 05:36
DX: G40.419 Other generalized epilepsy and epileptic syndromes, intractable, without status epilepticus (principal); F17.200 Nicotine dependence, unspecified, uncomplicated
CPT/HCPCS: 99283

== ENCOUNTER 2021-02-15 10:47 | Emergency (ER) | payer MEDICAID ==
[~2021-02-15] VITALS: Ht 185.4 cm; Wt 90.0 kg
[~2021-02-15 10:47] MED LIST changes: +OLAN10TA69 PO; -OLAN10TA9 PO
--- NOTE | 2021-02-15 11:15 | NUR ---
SECURITY DOOR INSTALLER: PT TO ROOM WITH EMS VIA [facility]A
[2021-02-15 11:21] VITALS: BP 103/70
--- NOTE | 2021-02-15 11:30 | NUR ---
JEREMIE From [facility] at request of PA there. Pt with seizure disorder and schizophrenia, 2 days ago had seizure taken to [facility] to left temporal lobe. Today pt c/o feeling "not coordinated" "off balance and dizzy". Pt denies any new seizure or head trauma. BG 101.
[2021-02-15] MEDS ORDERED: MECLIZINE CHEWABLE 25 MG TAB ONE (11:48)
[2021-02-15] MEDS ORDERED: MECLIZINE CHEWABLE 25 MG TAB PO ONE (12:00)
--- NOTE | 2021-02-15 12:11 | NUR ---
medicated per order, will ambulate pt in approx 1 hour. Pt agrees with this POC.
--- NOTE | 2021-02-15 13:01 | NUR ---
Got pt up, he walks steady gait. VSS. Being dc now.
== END 2021-02-15 13:20 | disposition home or self-care (01) ==
LOC: ED 12:00
DX: R42 Dizziness and giddiness (principal); R26.2 Difficulty in walking, not elsewhere classified
CPT/HCPCS: 99283